=== PATIENT | female | born 1940 | race Caucasian/White ===

== ENCOUNTER → 2024-01-13 11:04 | Outpatient (BNVA) | payer MEDICARE, OTHER, SELFPAY | PROVIDERS: PCP Family Medicine; Visit Provider Family Medicine | DX: I10 Essential (primary) hypertension (principal); M19.90 Unspecified osteoarthritis, unspecified site; M15.9 Polyosteoarthritis, unspecified | CPT/HCPCS: 80053; 81000; 85025 ==

== ENCOUNTER → 2025-04-27 09:44 | Outpatient (BNVA) | payer MEDICARE, OTHER, SELFPAY | PROVIDERS: Family Provider Family Medicine; PCP Family Medicine; Visit Provider Family Medicine | DX: I10 Essential (primary) hypertension (principal); Z90.49 Acquired absence of other specified parts of digestive tract | CPT/HCPCS: 80053; 85025 ==